=== PATIENT | female | born 1980 | race Two or more races ===

== ENCOUNTER 2018-05-16 06:31 | Emergency (ER) | payer MEDICAID ==
--- NOTE | 2018-05-16 06:50 | EDPHY ---
H & P Time Seen by Provider: 05/16/18 06:46 HPI/ROS: Chief Complaint: Hallucinations, difficulty thinking HPI: 37-year-old woman presenting complaining of difficulty thinking, auditory visual hallucinations. Patient states that she was seen at another facility yesterday morning and discharged after a mental health evaluation. She states she has a history of bipolar disorder and anxiety but is not currently on any medications in his certain of her diagnosis. She states that she is hearing voices and is having difficulty concentrating. She has not been sleeping. She does admit to using some marijuana and smoking cigarettes, denies any other drug or alcohol use. Is not currently suicidal. States that she will kill anybody that tries to keep her from going to see her daughter in [place]. She called 911. Police did not put her on M1 hold as she is coming to the hospital voluntarily. ROS: 10 systems were reviewed and were negative except those elements noted in the HPI. PMH: Bipolar disorder, anxiety Social History: Positive smoking, occasional alcohol, occasional marijuana Family History: non-contributory Physical Exam: Gen: Awake, Alert, pressured speech, often tangential HEENT: Nose: no rhinorrhea Eyes: PERRLA, EOMI Mouth: Moist mucosa Neck: Supple, no JVD Chest: nontender, lungs clear to auscultation Heart: S1, S2 normal, no murmur Abd: Soft, non-tender, no guarding Back: no CVA tenderness, no midline tenderness Ext: no edema, non-tender Skin: no rash Neuro: CN II-XII intact, Sensation grossly intact, Strength 5/5 in bilateral upper and lower extremities (Agus Ness) Constitutional: Initial Vital Signs Temperature (C) 36.5 C 05/16/18 06:45 Heart Rate 74 05/16/18 06:45 Respiratory Rate 16 05/16/18 06:45 Blood Pressure 124/70 H 05/16/18 06:45 O2 Sat (%) 97 05/16/18 06:45 O2 Delivery Mode Room Air Allergies/Adverse Reactions: No Known Allergies Allergy (Unverified 05/16/18 06:42) Medical Decision Making ED Course/Re-evaluation: 37-year-old woman presenting with difficulty thinking, pressured speech and reported auditory hallucinations hearing voices. These are nonspecific. She was seen at [facility] yesterday and was discharged from there department after mental health evaluation. She states she is off her medications in feels she needs to be placed on some but is uncertain what she should be taking. Plan will be to put her on a detainer here for mental health evaluation. 0700 patient signed out to Dr. Waldron pending medical clearance and mental health evaluation. (Agus Ness) I took over care of this patient at 7:00 a.m.. This patient was just discharged from [address] [place] [address] yesterday. She has a history of bipolar disorder and states that she has been hallucinating. She is currently on a detain her. She is to be evaluated by Dr. Griffiths at 8:00 a.m. This morning. Disposition pending. 8:20 a.m., this patient has been seen and evaluated by Behavioral Health and Dr. Griffiths. The patient has been cleared for discharge by Dr. Griffiths of the Psychiatric Service. The patient's remaining emergency department course under my care has been uneventful. The patient was discharged in good condition. Follow-up and return to emergency department precautions have been reviewed with her. All of her questions were answered. She was discharged in good condition. (Mateus Waldron) - Data Points Laboratory Results: Laboratory Results 05/16/18 06:50 05/16/18 06:50 05/16/18 05/16/18 05/16/18 06:50 06:50 06:50 WBC RBC Hgb Hct MCV MCH MCHC RDW Plt Count MPV Neut % (Auto) Lymph % (Auto) [place] % (Auto) Eos % (Auto) Baso % (Auto) Nucleat RBC Rel Count Absolute Neuts (auto) Absolute Lymphs (auto) Absolute Monos (auto) Absolute Eos (auto) Absolute Basos (auto) Absolute Nucleated RBC Immature Gran % Immature Gran # Sodium 138 mEq/L mEq/L (135-145) Potassium 4.2 mEq/L mEq/L (3.3-5.0) Chloride 102 mEq/L mEq/L (97-110) Carbon Dioxide 27 mEq/l mEq/l (22-31) Anion Gap 9 mEq/L mEq/L (8-16) BUN 21 mg/dL mg/dL (7-23) Creatinine 0.8 mg/dL mg/dL (0.6-1.0) Estimated GFR > 60 Glucose 104 mg/dL H mg/dL (70-100) Calcium 9.7 mg/dL mg/dL (8.5-10.4) Beta HCG, Qual NEGATIVE Urine Opiates Screen NEGATIVE (NEGATIVE) Urine Barbiturates NEGATIVE (NEGATIVE) Ur Phencyclidine Scrn NEGATIVE (NEGATIVE) Ur Amphetamine Screen NEGATIVE (NEGATIVE) U Benzodiazepines Scrn NEGATIVE (NEGATIVE) Urine Cocaine Screen NEGATIVE (NEGATIVE) U Marijuana (THC) Screen NEGATIVE (NEGATIVE) Ethyl Alcohol < 10 mg/dL mg/dL (0-10) 05/16/18 06:50 WBC 9.13 10^3/uL 10^3/uL (3.80-9.50) RBC 4.66 10^6/uL 10^6/uL (4.18-5.33) Hgb 13.7 g/dL g/dL (12.6-16.3) Hct 41.2 % % (38.0-47.0) MCV 88.4 fL fL (81.5-99.8) MCH 29.4 pg pg (27.9-34.1) MCHC 33.3 g/dL g/dL (32.4-36.7) RDW 12.6 % % (11.5-15.2) Plt Count 362 10^3/uL 10^3/uL (150-400) MPV 10.0 fL fL (8.7-11.7) Neut % (Auto) 69.3 % % (39.3-74.2) Lymph % (Auto) 19.7 % % (15.0-45.0) [place] % (Auto) 6.9 % % (4.5-13.0) Eos % (Auto) 3.2 % % (0.6-7.6) Baso % (Auto) 0.5 % % (0.3-1.7) Nucleat RBC Rel Count 0.0 % % (0.0-0.2) Absolute Neuts (auto) 6.32 10^3/uL 10^3/uL (1.70-6.50) Absolute Lymphs (auto) 1.80 10^3/uL 10^3/uL (1.00-3.00) Absolute Monos (auto) 0.63 10^3/uL 10^3/uL (0.30-0.80) Absolute Eos (auto) 0.29 10^3/uL 10^3/uL (0.03-0.40) Absolute Basos (auto) 0.05 10^3/uL 10^3/uL (0.02-0.10) Absolute Nucleated RBC 0.00 10^3/uL 10^3/uL (0-0.01) Immature Gran % 0.4 % % (0.0-1.1) Immature Gran # 0.04 10^3/uL 10^3/uL (0.00-0.10) Sodium Potassium Chloride Carbon Dioxide Anion Gap BUN Creatinine Estimated GFR Glucose Calcium Beta HCG, Qual Urine Opiates Screen Urine Barbiturates Ur Phencyclidine Scrn Ur Amphetamine Screen U Benzodiazepines Scrn Urine Cocaine Screen U Marijuana (THC) Screen Ethyl Alcohol Departure - Departure Disposition: Home, Routine, Self-Care Clinical Impression: Bipolar 1 disorder, Malingering Condition: Good Instructions: Bipolar Disorder (ED) Additional Instructions: Read and follow provided instructions. Follow-up with [facility] in 1-2 days for re-evaluation. Take medication as prescribed. Return to the emergency department for worsening symptoms or other serious concerns. Referrals: [facility],. [Clinic] - As per Instructions
[2018-05-16 07:07] LABS: PLATELET COUNT 362 10^3/uL (150-400)
[2018-05-16 08:58] VITALS: BP 128/72
== END 2018-05-16 09:45 | disposition home or self-care (01) ==
LOC: EDUNIT# → EDBD
DX: F31.2 Bipolar disorder, current episode manic severe with psychotic features (principal); F17.200 Nicotine dependence, unspecified, uncomplicated
CPT/HCPCS: 80305; G0480

== ENCOUNTER 2018-05-20 05:00 | Emergency (ER) | payer MEDICAID ==
--- NOTE | 2018-05-20 05:02 | EDPHY ---
H & P Time Seen by Provider: 05/20/18 05:02 HPI/ROS: HPI CHIEF COMPLAINT: Rash under abdominal Fold. HISTORY OF PRESENT ILLNESS: 37-year-old female, history of bipolar disorder, presents emergency room by EMS for rash underneath her abdominal fold. She called 911 tonight to be transported to the hospital for this rash. Patient states she is homeless. Has underlying mental illness. She denies wanting to hurt herself or anybody else. Denies suicidal or homicidal ideation. States her main complaint that she came to the emergency room for his rash under abdominal fold. States been present for at least the past 24 hr. Past Medical History: Bipolar disorder Past Surgical History: No recent surgery Social History: Smokes cigarettes and marijuana. Denies alcohol or other illicit drugs. Is homeless. Family History: Noncontributory. ROS REVIEW OF SYSTEMS: 10 Systems were reviewed and negative with the exception of the elements mentioned in the history of present illness. Exam Constitutional triage nursing summary reviewed, vital signs reviewed, awake/ alert. Eyes normal conjunctivae and sclera, EOMI, PERRLA. HENT normal inspection, atraumatic, moist mucus membranes, no epistaxis, neck supple/ no meningismus, no raccoon eyes. Respiratory clear to auscultation bilaterally, normal breath sounds, no respiratory distress, no wheezing. Cardiovascular rate normal, regular rhythm, no murmur, no edema, distal pulses normal. Gastrointestinal soft, non-tender, no rebound, no guarding, normal bowel sounds, no distension, no pulsatile mass. Genitourinary no CVA tenderness. Musculoskeletal no midline vertebral tenderness, full range of motion, no calf swelling, no tenderness of extremities, no meningismus, good pulses, neurovascularly intact. Skin under the abdominal fold bilaterally is a yeast infection. This under her lower abdominal pannus. Neurologic awake, alert and oriented x 3, AAOx3, moves all 4 extremities equally, motor intact, sensory intact, CN II-XII intact, normal cerebellar, normal vision, normal speech. Psychiatric normal mood/affect. Heme/Lymph/Immune no lymphadenopathy. Differential Diagnosis: Includes but is not limited to in a particular order yeast infection, panniculitis, cellulitis Medical Decision Making: Plan for this patient clinically on exam this appears to be a yeast infection. I will prescribe topical antifungal. Patient here is , cooperative answers my questions appropriately. Denies SI or HI. Denies wanting to harm herself or anybody else. Plan will be for clotrimazole cream. Applied here in the emergency room and then she can be discharged. Source: Patient, EMS - Medical/Surgical History Hx Asthma: No Hx Chronic Respiratory Disease: No Hx Diabetes: No Hx Cardiac Disease: No Hx Renal Disease: No Hx Cirrhosis: No Hx Alcoholism: No Hx HIV/AIDS: No Hx Splenectomy or Spleen Trauma: No Other PMH: psych?, bipolar - Social History Smoking Status: Current every day smoker Allergies/Adverse Reactions: No Known Allergies Allergy (Unverified 05/16/18 06:42) Departure - Departure Disposition: Home, Routine, Self-Care Clinical Impression: Yeast dermatitis Condition: Good Instructions: Yeast Infection (ED) Additional Instructions: 1. Return emergency room if you have worsening symptoms questions or concerns. Referrals: NONE *PRIMARY CARE P,. [Primary Care Provider] - As per Instructions [facility],. [Clinic] - As per Instructions
[2018-05-20 05:14] VITALS: BP 109/62
[2018-05-20] MEDS ORDERED: CLOTRIMAZOLE 1% 15 GM CRTUBE TP SCH (09:00)
== END 2018-05-20 05:31 | disposition home or self-care (01) ==
LOC: EDUNIT#
DX: B37.2 Candidiasis of skin and nail (principal); F17.200 Nicotine dependence, unspecified, uncomplicated

== ENCOUNTER 2018-06-18 19:57 | Emergency (ER) | payer MEDICAID, OTHER ==
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
[2018-06-18 20:28] VITALS: BP 112/83
[2018-06-18 20:45] LABS: PLATELET COUNT 340 10^3/uL (150-400)
[2018-06-18] MEDS ORDERED: AZITHROMYCIN 250 MG TAB PO ONE (21:20)
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
[2018-06-19 11:22] LABS: GC AMPLIFICATION GENPROBE NEGATIVE (NEGATIVE)
== END 2018-06-18 23:55 | disposition home or self-care (01) ==
LOC: EDUNIT#
DX: R10.2 Pelvic and perineal pain (principal); F17.210 Nicotine dependence, cigarettes, uncomplicated; F60.3 Borderline personality disorder; Z76.5 Malingerer [conscious simulation]; Z59.0 Homelessness
CPT/HCPCS: 80305; G0480; J0696

== ENCOUNTER 2018-06-19 20:00 | Emergency (ER) | payer MEDICAID ==
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
[2018-06-19 20:10] VITALS: BP 124/68
== END 2018-06-19 20:54 | disposition home or self-care (01) ==
LOC: EDUNIT#
DX: S00.83XA Contusion of other part of head, initial encounter (principal); Y04.0XXA Assault by unarmed brawl or fight, initial encounter; Y99.8 Other external cause status; Z59.0 Homelessness

== ENCOUNTER 2018-07-05 13:05 | Emergency (ER) | payer MEDICAID ==
--- NOTE | 2018-07-05 13:25 | EDPHY ---
General - History Smoking Status: Current some day smoker Time Seen by Provider: 07/05/18 13:12 Narrative: CHIEF COMPLAINT: SI, depression, ND HISTORY OF PRESENT ILLNESS: Patient presents by EMS on an M1 hold for depression and SI. She reports feeling increasingly depressed and suicidal over the past few days stating "I just do not want to live anymore. I can't do with." History of depression and bipolar disorder. She feels that she is on the wrong medications and that there and adequate. She states that she has an appointment on the for a 2nd Invega shot pain over the past few days she has had multiple thoughts of wanting to kill herself. Her plan today was to cut herself. She did reportedly have 2 nights on her when [employer] Police were called due to fear of safety for those around her. She does report intent to do so. She denies any actual attempt to harm herself today. She denies any pill ingestion. She denies any alcohol or drug use. No modifying factors. No other associated complaints. PSYCHIATRIC DIAGNOSES: Depression PRIOR PSYCHIATRIC EVALUATIONS: [facility] M1/DETAINER: [place] [employer] just prior to arrival REVIEW OF SYSTEMS: Ten systems reviewed and are negative unless otherwise noted in the HPI EXAMINATION General Appearance: Alert, no distress. Head: normocephalic, atraumatic Eyes: Pupils equal and round, no conjunctival pallor or injection ENT, Mouth: Mucous membranes moist Respiratory: Lungs are clear to auscultation Cardiovascular: Regular rate and rhythm Back: non-tender, no bony abnormalities Neurological: A&O, nonfocal, normal gait Skin: Warm and dry, no rash. No acute lacerations. There are multiple, well- healed superficial lacerations throughout her person. Extremities: Nontender, no pedal edema Psychiatric: Depressed mood and flat affect. Admits to suicidal ideation with plan to cut herself with knives. DIFFERENTIAL DIAGNOSES: Including but not limited to suicidal ideation, depression, mood instability, anxiety, bipolar, schizoaffective MDM: 1:15 p.m. M1 hold due to depression and suicidal ideation by [place] [employer] just prior to arrival. Patient does admit to SI. She denies any actual gesture or attempt today. Laboratory studies currently being drawn. She is thus far cooperative. 3:15 p.m. Patient is cleared for mental health evaluation. 4:15 p.m. Patient is currently being evaluated. I discussed the case with Dr. Dickson. She will assume care the patient. Please see her note for final disposition. SUPERVISION: Patient was independently examined, but I discussed the case with my primary supervising physician Dr. Dickson. (Maicol Sanchez) 1630: I assumed primary care of this patient. Mental health evaluation pending. 1945: seen by , looking for inpt dispo. 2100: Signed over to Dr. Ivey at shift change (Bianca Dickson) 0 700: Patient is signed out to wa at change of shift by Dr. Shaver. The patient is awaiting placement. Patient is stable 10 15: I discussed the case with Psychiatric Services. They found placement for the patient. EMTALA completed. 1300: Patient is awaiting transfer. (Vi Domínguez) Medical Decision Making: The patient's care is transferred to wa at 9:[address] Dickson. Her course was uneventful during this time. She has been evaluated and is awaiting placement. Care transferred to Dr. Shaver at shift change. (Harjeet Ivey) 0700AM: signed over to Dr. Roque. Here suicidal ideation, depression, bipolar disorder. M1 hold. Waiting placement. No acute events overnight. ( Juan Carlos Shaver) - Objective Vital Signs: Initial Vital Signs Temperature (C) 36.7 C 07/05/18 13:27 Heart Rate 66 07/05/18 13:27 Respiratory Rate 20 07/05/18 13:27 Blood Pressure 110/71 07/05/18 13:27 O2 Sat (%) 99 07/05/18 13:27 O2 Delivery Mode Room Air Allergies/Adverse Reactions: No Known Allergies Allergy (Verified 06/18/18 20:12) Home Medications: Medication Instructions Recorded Amitriptyline HCl 06/18/18 Hydroxyzine HCl 06/18/18 Prozac 10 MG (*) 06/18/18 traZODone 06/18/18 Laboratory Results: Laboratory Results 07/05/18 13:25 07/05/18 13:25 Departure - Departure Disposition: Other Psych, Not [place] Clinical Impression: Suicidal ideation, Severe major depression Condition: Fair Referrals: NONE *PRIMARY CARE P,. [Primary Care Provider] - As per Instructions
[2018-07-05 15:02] LABS: PLATELET COUNT 378 10^3/uL (150-400)
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
--- NOTE | 2018-07-06 11:06 | ASMTTCLDSP ---
TLC Discharge Disposition Disposition: Answers: Transfer Disposition Notes: Notes: Transferred to [facility]. Discharge Concerns/Recommendations: Notes: In consultation with [facility] ED physician, Juan Carlos Shaver MD, Dr. Shaver concurred that pt appears to meet 27-65 criteria requring psychiatric hospitalization as pt appears to be an imminent risk of harm to self due to a mental illness condition. Was patient given the Answers: Not applicable Inpatient Behavioral Health Prohibited Belongings List while in the ED? Type of Hold: Answers: M1/72-hour Hold Hold initiated by: Answers: Police For Transfers, Accepting [facility] Facility: For Transfers, Accepting Jacques Tolliver MD Psychiatrist: For Transfers, Reason [facility] at capacity Patient is Being Transferred: Date Signed: 07/06/2018 11:05 AM Electronically Signed By:Mervin Reece
[2018-07-06 12:58] VITALS: BP 125/83
== END 2018-07-06 12:58 ==
LOC: EDUNIT# → EEVIPCON 13:05
DX: F32.2 Major depressive disorder, single episode, severe without psychotic features (principal); F17.200 Nicotine dependence, unspecified, uncomplicated; F31.9 Bipolar disorder, unspecified; Z59.0 Homelessness; R45.851 Suicidal ideations
CPT/HCPCS: 80305; G0480

== ENCOUNTER 2019-01-22 08:51 | Emergency (ER) | payer SELFPAY ==
[2019-01-22 08:56] VITALS: BP 141/106
--- NOTE | 2019-01-22 09:00 | EDPHY ---
H & P Stated Complaint: burning lesion to forehead Time Seen by Provider: 01/22/19 08:57 HPI/ROS: HPI: This is a 38-year-old female who presents with Chief Complaint: Lesion on forehead Location: Forehead Quality: Lesion Duration: 3-4 days Signs and Symptoms: No bleeding, no radiation, no numbness, no weakness, no tingling, no incontinence, no decreased range of motion, + swelling, + pain, no fever, no discharge, + redness Timing: Gradual onset Severity: Mild Context: Patient presents with complaints of 3-4 day history of "bump on my forehead." She reports that it had gradual onset and has slowly increased in size. It is tender to touch. She does wear hat while working at [employer] which rubbed on the area and causes discomfort. She does not wash her face daily. Denies discharge, fever, warmth. No history of diabetes mellitus. Denies fatigue, nausea, sore throat, cough, headache, malaise. Modifying Factors: No [id number] medications tried Comment: ROS: A comprehensive 10 system review of systems is otherwise negative aside from elements mentioned in the history of present illness. MEDICAL/SURGICAL/SOCIAL HISTORY: Medical history: Bipolar, posttraumatic stress disorder. LMP 1-2 weeks ago. Surgical history: Denies Social history: Current some day smoker. . Works for [employer]. CONSTITUTIONAL: Overweight nontoxic-appearing female, awake and alert , no obvious distress HEENT: Atraumatic and normocephalic, PERRL, EOMI. Nares patent; no rhinorrhea; no nasal mucosal edema. Tympanic membranes clear. Oropharynx clear, no exudate and moist pink mucosa. Airway patent. No lymphadenopathy. No meningismus. Cardiovascular: Normal S1/S2, regular rate, regular rhythm, without murmur rub or gallop. PULMONARY/CHEST: Symmetrical and nontender. Clear to auscultation bilaterally. Good air movement. No accessory muscle usage. ABDOMEN: Soft, nondistended, nontender, no rebound, no guarding, no peritoneal signs, no masses or organomegaly. No CVAT. EXTREMITIES: 2/2 pulses, strength 5/5, no deformities, no clubbing, no cyanosis or edema. NEUROLOGICAL: no focal neuro deficits. GCS 15. SKIN: Warm and dry, indurated 0.5 in annular area palpable subcutaneous directly in the middle of her forehead between her eyebrows; no fluctuance; mildly erythematous; no pustule, no vesicles. Good capillary refill. Source: Patient Exam Limitations: No limitations - Personal History LMP (Females 10-55): 8-14 Days Ago Current Tetanus Diphtheria and Acellular Pertussis (TDAP): No - Medical/Surgical History Hx Asthma: No Hx Chronic Respiratory Disease: No Hx Diabetes: No Hx Cardiac Disease: No Hx Renal Disease: No Hx Cirrhosis: No Hx Alcoholism: No Hx HIV/AIDS: No Hx Splenectomy or Spleen Trauma: No Other PMH: bipolar, PTSD - Social History Smoking Status: Current some day smoker Constitutional: Initial Vital Signs Temperature (C) 36.7 C 01/22/19 08:53 Heart Rate 90 01/22/19 08:53 Respiratory Rate 18 01/22/19 08:53 Blood Pressure 141/106 H 01/22/19 08:53 O2 Sat (%) 96 01/22/19 08:53 O2 Delivery Mode Room Air Allergies/Adverse Reactions: No Known Allergies Allergy (Verified 01/22/19 08:52) Home Medications: Medication Instructions Recorded Clindamycin Phos/Benzoyl Perox 1 ovi TP HS #25 gel..gram. 01/22/19 [Clindamycin-Benzoyl Perox Gel] [place] 01/22/19 Medical Decision Making ED Course/Re-evaluation: Vital signs reviewed and show mildly elevated blood pressure. No fluctuance to I and D and no signs of shingles/facial cellulitis. Patient was given topical antibiotic/benzyl peroxide appointment Follow-up at [facility]. This patient was seen under the supervision of my secondary supervising physician. I evaluated and cared for this patient with attending. Differential Diagnosis: Differential diagnosis includes but is not limited to cellulitis, shingles, acne , abscess. Departure - Departure Disposition: Home, Routine, Self-Care Clinical Impression: Superficial inflammatory acne vulgaris Condition: Good Instructions: Salicylic Acid (On the skin) Additional Instructions: Wash face daily with acne facial soap. Apply topical benzyl peroxide/clindamycin cream twice daily for the next 7 days and then at night as needed. Apply warm compresses 3 times daily for the next 2 days. Referrals: [facility],. [Primary Care Provider] - 5-7 days, if not improved Prescriptions: Clindamycin Phos/Benzoyl Perox [Clindamycin-Benzoyl Perox Gel] 1 ovi TP HS #25 gel..gram.
== END 2019-01-22 09:14 | disposition home or self-care (01) ==
DX: L70.0 Acne vulgaris (principal)